=== PATIENT | female | born 1985 | race Caucasian/White ===

== ENCOUNTER 2017-06-06 19:46 | Emergency (ER) | payer OTHER ==
[~2017-06-06] VITALS: Ht 165.1 cm; Wt 105.1 kg
[~2017-06-06 19:46] MED LIST: Feosol PO; KEFLEX500 MG PO; Motrin PO; NAPROXEN500 MG PO; Natalcare Rx,Pramile PO; PROMETHAZINE HC25 M1 PO; Percocet 5/325,Endoc PO; TYLENOL SINUS1 EAC3 PO; ZOFRAN4 MG PO
[2017-06-06] MEDS ORDERED: BACTRIM,SEPT1 TABLET PO (21:53)
[2017-06-06] MEDS ORDERED: PERCOCET 5/31 TABLET PO (21:53)
[2017-06-06] MEDS ORDERED: KEFLEX500 MG PO (21:53)
[2017-06-06 22:14] VITALS: BP 121/82
== END 2017-06-06 22:14 | disposition home or self-care (01) ==
LOC: EME 19:46
DX: L02.416 Cutaneous abscess of left lower limb (principal)
CPT/HCPCS: 99281; 99283